=== PATIENT | male | born 1950 | race Caucasian/White ===

== ENCOUNTER 2019-04-12 16:07 | Inpatient (IN) | payer MEDICARE, BC, SELFPAY ==
[2019-04-12] VITALS (9 sets, daily range): BP systolic 101–143; BP diastolic 52–73; PULSE 83–98; RESP 18–36; TEMP 36.6–37.4; O2SAT 94–97; BMI 23.0
--- NOTE | ~2019-04-12 | XR_ITS ---
EXAMINATION: XR chest 2V EXAM DATE: 04/12/2019 17:35 INDICATION: Shortness of breath, pneumonia, left-sided chest pain. TECHNIQUE: Frontal and lateral projections of the chest obtained and reviewed. Comparison is made to prior examination from 04/11/2019. FINDINGS: There is worsening left basilar airspace disease with more confluent today, probably combi nation of pneumonia and atelectasis. There is small left pleural effusion. Right lung is clear. Cardi omediastinal silhouette is normal. There is no pneumothorax suspected. There are mild bony degenerati ve changes. IMPRESSION: Progressing left basilar multisegmental atelectasis and probably pneumonia. Small pleural effusion. Reviewed, dictated and finalized at location A. IAL AGENT IN CHARGE IMPRESSION: Progressing left basilar multisegmental atelectasis and probably pn eumonia. Small pleural effusion.
--- NOTE | ~2019-04-12 | CT_ITS ---
EXAMINATION:CT chest w con DATE: 04/14/2019 07:59 INDICATION: Left parapneumonic effusion. TECHNIQUE: Computed tomography (CT) of the chest was performed with 75 mL Omnipaque 350 intravenous c ontrast. Automated exposure control and iterative reconstruction technique were employed. The dose-le ngth product (DLP) was 284.24 mGy-cm. COMPARISON: Chest CT 04/12/2019 FINDINGS: There is a large loculated left pleural effusion. There are airspace opacities involving le ft lower lobe and lingula, consistent with atelectasis and pneumonia. There is a trace right pleural effusion. There is mild atelectasis on the right. There are a few nodules in right lung measuring up to 4 mm, likely benign. The heart size is normal. No pericardial effusion. The gallbladder is distend ed, likely secondary to fasting. There is mild thoracic spondylosis. IMPRESSION: 1. Worsened large loculated left pleural effusion. 2. Airspace opacities and volume loss involving left lower lobe and lingula, consistent with atelecta sis and pneumonia. Reviewed, dictated and finalized at location A. NE MAINTENANCE MECHANIC IMPRESSION: 1. Worsened large loculated left pleural effusion. 2. Airspace opacities and volume loss involving left lower lobe and lingula, co nsistent with atelectasis and pneumonia.
--- NOTE | ~2019-04-12 | CT_ITS ---
EXAMINATION: CTA chest PE protocol EXAM DATE: 04/12/2019 18:36 INDICATION: Shortness of breath, left-sided pleuritic chest pain worsening. TECHNIQUE: Spiral CTA of the chest (pulmonary arteries) was performed with 100 cc Omnipaque 350 intr avenous contrast injection. Images were acquired during the pulmonary arterial phase. Coronal maxi mum intensity projection 3D-reconstructions were created by the technologist on dedicated workstation . Axial, coronal and sagittal reformatted images were reviewed. The dose-length product (DLP) for t his examination was 405.91 mGy-cm. The exposure was tailored according to patient size (auto mA exp osure control), and iterative reconstruction (ASIR) was used as additional dose reduction technique. Comparison is made to prior examination from earlier same day, a noncontrast study. FINDINGS: There are no pulmonary emboli in the 1st through 3rd order (central and interlobar) pulmon jamaal arteries. Some loss of attenuation in the segmental pulmonary arteries due to respiratory motion , but no intraluminal filling defects suspected. No thoracic aortic dissection. Small to moderate left pleural effusion with adjacent airspace disease partly atelectasis but there is also a region of this which does not have homogeneous enhancement, indicating likelihood of underlying pneumonia or l ess likely mass (a follow-up exam is indicated) Tracheobronchial tree is patent. There is no medias tinal, hilar or axillary lymphadenopathy. There is no pneumothorax. Heart normal in size. No ev idence of coronary arterial calcification. There is 3 mm left mid calyceal stone. Some gastroesophag eal reflux suspected. There is mild to moderate thoracic spondylosis without osteoblastic or osteoly tic lesions identified. IMPRESSION: 1. Limited segmental evaluation, but no pulmonary emboli are suspected. 2. Left lower lobe airspace disease, combination of atelectasis and focal consolidation/pneumonia. F ollow-up CT is indicated when acute symptoms resolve to exclude any underlying chronic process. 3. Small to moderate left pleural effusion. Reviewed, dictated and finalized at location A. INE MANAGER IMPRESSION: 1. Limited segmental evaluation, but no pulmonary emboli are suspected. 2. Left lower lobe airspace disease, combination of atelectasis and focal cons olidation/pneumonia. Follow-up CT is indicated when acute symptoms resolve to e xclude any underlying chronic process. 3. Small to moderate left pleural effusion.
--- NOTE | 2019-04-12 16:28 | ED.SOB ---
HPI - SOB/Dyspnea General Chief Complaint: Shortness of Breath/Dyspnea Stated Complaint: having trouble breathing, dx with pneumonia Time Seen by Provider: 04/12/19 16:23 Source: patient and RN notes reviewed Mode of arrival: ambulatory Limitations: no limitations History of Present Illness HPI Narrative: Pt is a 68 y/o white male who presents to the ED with c/o lt-sided flank pain that has been progressively worsening for the past 3 weeks. Pt notes he was here yesterday and was Dx with pneumonia and sent home on ABx (taken early this morning) and Ibuprofen . He states he returned to the ED today due to the pain worsening and the Ibuprofen not helping. He reports SOB due to the pain. Pt denies emesis or fever. He also denies having any medical issues (no COPD, heart conditions, DM, kidney issues, etc...), allergies, or smoking. Onset (ago): week(s) (3) Context: other (Dx with pneumonia yesterday) Timing: progressively worsening Related Data Home Medications Medication Instructions Recorded Confirmed omeprazole 20 mg PO 3XW 04/12/19 04/12/19 Allergies Allergy/AdvReac Type Severity Reaction Status Date / Time No Known Allergies Allergy Verified 04/12/19 16:58 Review of Systems Review of Systems: All systems reviewed & are unremarkable except as noted in HPI and below Constitutional: Constitutional: Denies fever(s) Respiratory: Respiratory: Reports dyspnea (due to pain) Gastrointestinal: Gastrointestinal: Reports abdominal pain (tenderness) and Denies vomiting Musculoskeletal: Musculoskeletal: Reports other (lt-sided pain) [facility] Past Medical History Medical History (Updated 04/12/19 @ 23:57 by Lorenza Rothman MD) Depression GERD (gastroesophageal reflux disease) Surgical History Surgical History (Updated 04/12/19 @ 22:57 by Miriam Xiao PA-C) Status post appendectomy Status post lumbar spine operation Status post rotator cuff repair Family History Family History Mother Patient's mother is , Onset Age: 67 Sibling Cerebrovascular accident Acute myocardial infarction Social History Social History (Updated 04/12/19 @ 22:58 by Miriam Xiao PA-C) Social History: The patient lives in his own home in [place]. 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 He designates his sister, Natali Corado, as his surrogate decision maker and he wishes to be a full code. He drinks perhaps 6 beers a week. He denies tobacco and drug use. Smoking status: Never smoker Second hand tobacco smoke exposure: Yes Alcohol intake: current Drinks per week: 6 Substance use: former Substance use type: marijuana Gender identity (if verbalized by the patient): Male Spiritual care concerns: No Agree to blood products: Yes Exam Narrative: Exam Narrative: GENERAL: well-nourished, patient splint in pain. HEAD: Normocephalic, atraumatic EYES: PERRLA and EOMI, conjunctiva clear without discharge EARS: TM's clear bilaterally without erythema or dullness NOSE: Nares clear, no rhinorrhea or epistaxis THROAT:Mucous membranes moist, Oropharynx normal without erythema, exudate, peritonsillar swelling or fluctuance NECK: Supple, without lymphadenopathy or mass RESPIRATORY: , Airway patent, Respirations non-labored, Patient is diminished breath sounds to left base. patient taking short shallow breaths due to pain. HEART: Regular rate and rhythm. No murmur heard. Normal peripheral pulses. ABDOMEN: Soft, nontender, nondistended, normal active bowel sounds. No masses. No rebound or guarding, No organomegaly. EXTREMITIES: No edema, normal strength with full range of motion. SKIN: Warm, dry, normal color without rash NEURO: Alert and oriented x3. CN 2-12 grossly intact. No focal deficits. PSYCH: Normal mood and affect. Course Consultations Consultation #1: CELESTE Hyde to Hospitalist Discussed case. Accepted admis
--- NOTE | 2019-04-12 16:39 | ECG_ITS ---
Measurements Intervals [place] Rate: 84 P: 44 DC: 140 QRS: -21 QRSD: 96 T: 34 QT: 358 QTc: 426 Interpretive Statements SINUS RHYTHM INCOMPLETE RIGHT BUNDLE BRANCH BLOCK VOLTAGE CRITERIA FOR LVH MINIMAL Q WAVES- LATERAL LEADS BASELINE ARTIFACT- II, III, AVL, AVF, V3-V6 BORDERLINE ECG Electronically Signed On 04-12-2019 17:42:50 FOREST RANGER TECHNICIAN by Warren Hebert D.O.
[2019-04-12] MEDS: ONDANSETRON INJ 4 MG/2 ML VIAL IV PUSH (16:52)
[2019-04-12] MEDS: HYDROMORPHONE HCL 1 MG/ML INJ IV PUSH (16:52)
[2019-04-12 16:53] LABS: Basophils Absolute Auto 0.1 K/mm3 (0.0-0.1); Basophils Percent Auto 0.5 % (0.2-1.2); Eosinophils Absolute Auto 0.3 K/mm3 (0-0.3); Eosinophils Percent Auto 2.3 % (0-4.4); Hematocrit 37.2 % (42.0-52.0); Hemoglobin 11.6 g/dL (14.0-18.0); Immature Granulocyte Absolute 0.06 K/mm3 (0.00-0.031); Immature Granulocyte Percent A 0.4 % (0-0.5); Lymphocytes Absolute Auto 2.02 K/mm3 (0.9-3.2); Lymphocytes Percent Auto 14.9 % (18.3-44.2); Mean Corpuscular HGB Conc 31.2 g/dl (32-36); Mean Corpuscular Hemoglobin 29.4 pg (26-34); Mean Corpuscular Volume 94.4 fl (80-100); Mean Platelet Volume 11.1 fl (7.4-10.4); Monocytes Absolute Auto 1.7 K/mm3 (0.1-0.6); Monocytes Percent Auto 12.5 % (2.6-8.5); Neutrophils Absolute Auto 9.4 K/mm3 (1.3-6.7); Neutrophils Percent Auto 69.4 % (45.5-73.1); Platelet Count Result 263 k/mm3 (150-375); Red Blood Count 3.94 M/mm3 (4.6-6.20); Red Cell Distribution Width 12.8 % (11.5-14.5); White Blood Count 13.6 K/mm3 (4.5-10.0)
[2019-04-12 17:05] LABS: Alanine Aminotransferase 16 U/L (4-50); Albumin Level 4.3 g/dL (3.5-5.1); Alkaline Phosphatase 67 U/L (38-126); Aspartate Amino Transferase 23 U/L (17-59); Blood Urea Nitrogen 20 mg/dL (9-20); Calcium 9.4 mg/dL (8.4-10.2); Carbon Dioxide 27 mmol/L (22-30); Chloride 101 mmol/L (98-107); Estimated CRCL calculation 80 ml/min; Estimated Glomerular Filt Rate > 60; Glucose 118 mg/dL (75-110); Potassium 3.4 mmol/L (3.4-5.0); Sodium 142 mmol/L (137-145)
[2019-04-12 17:05] LABS: Lactic Acid Reflex 1.2 mmol/L (0.7-2.1)
[2019-04-12 17:11] LABS: Alveolar/Arterial O2 Gradient 48.9 mmHg; Base Excess ABG -1.2 mEq/l (+/-2.0); Carboxyhemoglobin 0.9 % THb (0-2.0); Fractional Inspired Oxygen 21 %; HCO3 ABG 22.7 mEq/l (22.0-26.0); Methemoglobin ABG 0.1 %THb (0-1.5); Oxygen Content ABG 14.8 %vol (16.0-22.0); Oxygen Saturation ABG 91.3 % (95.0-100.0); Oxyhemoglobin 90.1 % THb (90.0-100.0); PCO2 ABG 35.2 mmHg (35.0-45.0); PO2 ABG 58.7 mmHg (80.0-100.0); Reduced Hemoglobin 8.9 %THb (0-5.0); Total Hemoglobin 11.7 g/dL (12.0-18.0); pH ABG 7.427 (7.350-7.450)
[2019-04-12 17:12] LABS: Device ROOM AIR; Modified Allen's Test Pass; Site Drawn RIGHT RADIAL
--- NOTE | 2019-04-12 19:05 | PM.IMHP ---
H&P: HPI History of Present Illness Chief complaint: Shortness of breath and left flank pain. Narrative: Bobby Moore is a pleasant 68 year old male with history of kidney stones, GERD, osteoarthritis, and depression who presented to the emergency department earlier this afternoon from home for evaluation of shortness of breath and left flank pain. The Sunday before he had what he presumed to be influenza. Within a week he was feeling better however has had a persistent cough since that time, rarely productive of clear phlegm. Over the last 3 weeks he has developed left flank/lower ribcage pain that seems to be pleuritic in nature. He describes an intermittent sharp and knife-like pain in the same region, worse with deep inspiration, cough, movement, etc. His appetite has been poor and when he does eat it tastes terrible. He has also had intermittent chills and subjective fever. NyQuil does helps him sleep somewhat and ibuprofen is having lesser and lesser effect on the pleuritic pain. He was seen in the emergency department yesterday, 04/11/2019, was diagnosed with pneumonia and discharged on Levaquin. Unfortunately, he continues to feel worse and came back today. He has not had a fever in the last couple of days. He continues to have some chills. No sinus congestion, rhinorrhea, otalgia, or odynophagia. He denies exertional chest pain. No significant orthopnea. He denies lower extremity edema, calf pain, and history of venous thromboembolism. No dysphagia or concerns for aspiration. No history of multidrug resistant organisms. Review of Systems Review of Systems: Narrative: Twelve systems were reviewed with pertinent positives and negatives as per HPI. He has lost about 15 pound since before due to poor appetite. No overt orthopnea but he does feel a bit better if he is propped up. He does suffer from GERD and will take [id number] Prilosec 3 or 4 times per week. No melena or hematochezia. He has not had epigastric or abdominal pain. He admits to suffering from depression, and has been off antidepressants for about 6 months as his primary care provider apparently left the region. He admits to being depressed, but seems to have a good support system in his sister and he has no harmful thoughts. He says that sometimes he feels confused, but when asked for specifics he really could not give any. More so, he describes ?feeling like I am in a fog.? No focal weakness or paresthesias. No auditory visual changes. he notes a cervical strain but no significant problems with that at this time. Except as documented, all other systems were reviewed and are negative. [facility] Past Medical History Medical History (Updated 04/12/19 @ 23:02 by Miriam Xiao PA-C) Depression GERD (gastroesophageal reflux disease) Surgical History Surgical History (Updated 04/12/19 @ 22:57 by Miriam Xiao PA-C) Status post appendectomy Status post lumbar spine operation Status post rotator cuff repair Family History Family History Mother Patient's mother is , Onset Age: 67 Sibling Cerebrovascular accident Acute myocardial infarction Social History Social History (Updated 04/12/19 @ 22:58 by Miriam Xiao PA-C) Social History: The patient lives in his own home in [place]. 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 He designates his sister, Natali Corado, as his surrogate decision maker and he wishes to be a full code. He drinks perhaps 6 beers a week. He denies tobacco and drug use. Smoking status: Never smoker Second hand tobacco smoke exposure: Yes Alcohol intake: current Drinks per week: 6 Substance use: former Substance use type: marijuana Gender identity (if verbalized by the patient): Male Spiritual care concerns: No Agree to blood products: Yes Meds Home Medications and Allergies Home Medications
[2019-04-12] MEDS: KETOROLAC 30 MG/ML VIAL (*BKC) IV PUSH (19:36)
[2019-04-12] MEDS: HYDROMORPHONE HCL 1 MG/ML INJ 0.5 MG IV PUSH ×2 (19:36→23:18)
--- NOTE | 2019-04-12 20:48 | ADMGEN ---
This patient, Bobby Moore, was admitted to Medical Room 349-01. Patient/family oriented to hospital policies and general routines including ID bracelet, bed and alarms, visiting hours, pain management, procedures, bathroom and other care routines, personal items, smoking policy, room service/diet, and visiting hours. Valuables list has been completed. Information on how to activate the Rapid Response Team has been discussed. Patient/Family are encouraged to report perceived risks to care and to ask questions if they do not understand what they are told or what they should do.
[2019-04-12] MEDS: LACTATED RINGERS 1,000 ML 125 ML IV CONT (20:51)
[2019-04-13] VITALS (22 sets, daily range): BP systolic 110–121; BP diastolic 51–63; PULSE 73–115; RESP 14–20; TEMP 36.6–39.4; O2SAT 95–97
[2019-04-13] MEDS: IPRATROPIUM BR 0.02% INH SOLN 0.5 MG/2.5 ML VIAL INHALATION ×4 (02:13→21:39)
[2019-04-13] MEDS: ALBUTEROL SULFATE NEB 2.5 MG/0.5 ML INH 5 MG INHALATION ×4 (02:13→21:39)
[2019-04-13] MEDS: HYDROMORPHONE HCL 1 MG/ML INJ 0.5 MG IV PUSH ×4 (03:26→22:52)
[2019-04-13] MEDS: LACTATED RINGERS 1,000 ML 125 ML IV CONT ×2 (05:16→13:38)
[2019-04-13 06:07] LABS: Basophils Absolute Auto 0.1 K/mm3 (0.0-0.1); Basophils Percent Auto 0.3 % (0.2-1.2); Eosinophils Absolute Auto 0.1 K/mm3 (0-0.3); Eosinophils Percent Auto 0.4 % (0-4.4); Hematocrit 33.6 % (42.0-52.0); Hemoglobin 10.4 g/dL (14.0-18.0); Immature Granulocyte Absolute 0.07 K/mm3 (0.00-0.031); Immature Granulocyte Percent A 0.4 % (0-0.5); Lymphocytes Absolute Auto 0.91 K/mm3 (0.9-3.2); Lymphocytes Percent Auto 5.5 % (18.3-44.2); Mean Corpuscular Hemoglobin 28.9 pg (26-34); Mean Corpuscular Volume 93.3 fl (80-100); Mean Platelet Volume 10.5 fl (7.4-10.4); Monocytes Absolute Auto 1.5 K/mm3 (0.1-0.6); Monocytes Percent Auto 8.8 % (2.6-8.5); Neutrophils Percent Auto 84.6 % (45.5-73.1); Platelet Count Result 228 k/mm3 (150-375); White Blood Count 16.5 K/mm3 (4.5-10.0)
[2019-04-13 06:36] LABS: Blood Urea Nitrogen 20 mg/dL (9-20); Calcium 8.7 mg/dL (8.4-10.2); Carbon Dioxide 24 mmol/L (22-30); Chloride 100 mmol/L (98-107); Estimated CRCL calculation 72 ml/min; Estimated Glomerular Filt Rate > 60; Glucose 84 mg/dL (75-110); Potassium 3.8 mmol/L (3.4-5.0); Sodium 137 mmol/L (137-145)
--- NOTE | 2019-04-13 14:47 | PM.IMPN ---
Progress Note: A&P Assessment and Plan (1) Community acquired pneumonia: Qualifiers: Laterality: left Lung location: lower lobe of lung Qualified Code(s): J18.9 - Pneumonia, unspecified organism Code(s): J18.9 - Pneumonia, unspecified organism Status: Acute Assessment and Plan: ------likely secondary to influenza prior. WBC did increase today 16.5. Continue azithromycin and ceftriaxone. Consider vancomycin if no improvement, but at this time he is clinically stable without evidence of necrotizing pneumonia. Will wait for pulmonology's recommendations. Consider thoracentesis because of the patient's significant pain. Sputum culture and urine antigens have been ordered. (2) Pleural effusion on left: Code(s): J90 - Pleural effusion, not elsewhere classified Status: Acute Assessment and Plan: ------Concerns for parapneumonic effusion given pneumonia. See above (3) Depression: Code(s): F32.9 - Major depressive disorder, single episode, unspecified Status: Acute Assessment and Plan: ------Patient does report feeling depressed, but has a good support system. Previous provider discussed establishing a new primary care provider so he can resume antidepressants. He denies harmful thoughts. Time Spent With Patient Time with patient: 25 - 35 minutes Subjective Date/time seen: 04/13/19 14:47 Interval history: Pt is a 68-year-old male here for left pleuritic pain. Patient states the pain is persistent and he is very uncomfortable 10/10 pain. He does not have any shortness of breath or dyspnea on exertion, just significant pain with cough and deep breaths on left side. He says the pain medications barely touches it. Patient denies nausea, vomiting, diarrhea or constipation. He thinks it may have improved slightly. Review of Systems Review of Systems: All systems reviewed & are unremarkable except as noted in HPI and below Exam Narrative: Exam Narrative: General: Well developed well nourished patient resting comfortably in bed in NAD HEENT: normocephalic Neck: supple Neuro: Alert and oriented x4 CV:RRR. significant pain to palpation to the left chest. Resp: Slightly decreased breath sounds at the bases due to the patient not taking deep breaths. Abd: Soft, non distended. No pain to palpation. Positive bowel sounds Extremities: No swelling, erythema, or pain to palpation. Objective Data Vital Signs Vital Signs: Vital Signs - 24 hr 04/12/19 16:15 04/12/19 16:22 04/12/19 16:28 Temperature 97.8 F Pulse Rate 84 83 83 Respiratory Rate 19 36 H Blood Pressure 143/56 H Pulse Oximetry 94 94 04/12/19 16:32 04/12/19 16:55 04/12/19 18:00 Temperature 98.0 F Pulse Rate 89 91 Respiratory Rate 32 H 23 H Blood Pressure 101/73 137/67 Pulse Oximetry 94 95 97 04/12/19 19:00 04/12/19 20:20 04/12/19 20:26 Temperature 99.3 F 98.7 F Pulse Rate 98 95 98 Respiratory Rate 25 H 20 18 Blood Pressure 112/64 107/52 L 107/68 Pulse Oximetry 95 96 95 04/13/19 00:00 04/13/19 02:14 04/13/19 02:23 Temperature Pulse Rate 88 73 77 Respiratory Rate 16 18 Blood Pressure Pulse Oximetry 04/13/19 04:00 04/13/19 06:00 04/13/19 08:00 Temperature 98.2 F Pulse Rate 90 87 82 Respiratory Rate 20 Blood Pressure 120/63 Pulse Oximetry 95 04/13/19 08:14 04/13/19 08:23 04/13/19 08:35 Temperature Pulse Rate 85 91 82 Respiratory Rate 18 18 18 Blood Pressure Pulse Oximetry 95 04/13/19 12:00 Temperature Pulse Rate 85 Respiratory Rate Blood Pressure Pulse Oximetry Intake/Output Intake/Output: Intake & Output 04/10/19 04/11/19 04/12/19 04/13/19 23:59 23:59 23:59 23:59 Intake Total 300 2780 Output Total 600 Balance 300 2180 Meds/Results Medications: Active Medications Generic Name Dose Route Start Last Admin Trade Name Freq PRN Reason Stop Dose Admin Albuterol 5 mg 04/13
--- NOTE | 2019-04-13 19:47 | PM.CNPUL ---
Assessment and Plan Assessment and plan (1) Community acquired pneumonia: Qualifiers: Laterality: left Lung location: lower lobe of lung Qualified Code(s): J18.9 - Pneumonia, unspecified organism Code(s): J18.9 - Pneumonia, unspecified organism Status: Acute Assessment and Plan: Agree with Ceftriaxone and Azithromycin or Levaquin 750 mg for 8-10 days (2) Parapneumonic effusion: Code(s): J18.9 - Pneumonia, unspecified organism; J91.8 - Pleural effusion in other conditions classified elsewhere Status: Acute Assessment and Plan: - I will order repeat CT chest with IV contrast tomorrow. If Pleural fluid has not decreased in sized I would recommend a left small bore chest tube be inserted to prevent empyema from developing - Toradol 30 mg IV Q6h scheduled for 48 hours - agree with hydromorphone PRN for moderate to severe pain - encourage incentive spirometer Q2h while awake and mobilzation. History of Present Illness History of Present Illness Consult date: 04/13/19 Chief complaint: Shortness of breath and left flank pain. Narrative: 68 y/o relatively health male who developed flu like symptoms since late february 2019, originally with URI like symptoms but later developed cough and left pleuritic chest pain along with subjective fevers and some chills. He was originally prescribed outpatient levofloxacin but could not tolerate the the left pleuritic chest pain and was admitted to hospital yesterday. He was started on Ceftriaxone and Azithromycin along with pain control. A CT chest showed LLL pneumonia and mild to moderate sized left pleuritic effusion that appeared to be free flowing. Review of Systems Review of Systems: All systems reviewed & are unremarkable except as noted in HPI and below PMFSH Past Medical History Medical History (Updated 04/13/19 @ 20:10 by Timbo Young MD) Depression GERD (gastroesophageal reflux disease) Surgical History Surgical History (Updated 04/12/19 @ 22:57 by Miriam Xiao PA-C) Status post appendectomy Status post lumbar spine operation Status post rotator cuff repair Family History Family History Mother Patient's mother is , Onset Age: 67 Sibling Cerebrovascular accident Acute myocardial infarction Social History Social History (Updated 04/12/19 @ 22:58 by Miriam Xiao PA-C) Social History: The patient lives in his own home in [place]. 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 He designates his sister, Natali Corado, as his surrogate decision maker and he wishes to be a full code. He drinks perhaps 6 beers a week. He denies tobacco and drug use. Smoking status: Never smoker Second hand tobacco smoke exposure: Yes Alcohol intake: current Drinks per week: 6 Substance use: former Substance use type: marijuana Gender identity (if verbalized by the patient): Male Spiritual care concerns: No Agree to blood products: Yes Meds Home Medications and Allergies Home Medications Medication Instructions Recorded Confirmed Type cyclobenzaprine 10 mg PO TID PRN #10 tablet 04/12/19 04/12/19 Rx ibuprofen [IBU] 600 mg PO Q6H PRN #20 tablet 04/12/19 04/12/19 Rx levofloxacin [Levaquin] 750 mg PO DAILY #10 tablet 04/12/19 04/12/19 Rx omeprazole 20 mg PO 3XW 04/12/19 04/12/19 History Allergies Allergy/AdvReac Type Severity Reaction Status Date / Time No Known Allergies Allergy Verified 04/12/19 16:58 Vital Signs Vital Signs - 24 hr 04/12/19 20:20 04/12/19 20:26 04/13/19 00:00 Temperature 37.1 C Pulse Rate 95 98 88 Respiratory Rate 20 18 Blood Pressure 107/52 L 107/68 Pulse Oximetry 96 95 04/13/19 02:14 04/13/19 02:23 04/13/19 04:00 Temperature Pulse Rate 73 77 90 Respiratory Rate 16 18 Blood Pressure Pulse Oximetry 04/13/19 06:00 04/13/19 08:00 04/13/19 08:14 Temperature 36.8 C
[2019-04-13] MEDS: KETOROLAC 30 MG/ML VIAL (*BKC) IV PUSH (20:15)
[2019-04-13] MEDS: FAMOTIDINE 20 MG TABLET PO (20:18)
[2019-04-14] VITALS (13 sets, daily range): BP systolic 136–152; BP diastolic 61–65; PULSE 88–116; RESP 18–24; TEMP 37–37.5; O2SAT 91–96; BMI 24.3
[2019-04-14] MEDS: KETOROLAC 30 MG/ML VIAL (*BKC) IV PUSH ×3 (00:49→13:44)
[2019-04-14] MEDS: LACTATED RINGERS 1,000 ML 80 ML IV CONT ×2 (00:51→13:47)
[2019-04-14] MEDS: IPRATROPIUM BR 0.02% INH SOLN 0.5 MG/2.5 ML VIAL INHALATION ×3 (04:13→14:46)
[2019-04-14] MEDS: ALBUTEROL SULFATE NEB 2.5 MG/0.5 ML INH 5 MG INHALATION ×3 (04:13→14:46)
[2019-04-14] MEDS: HYDROMORPHONE HCL 1 MG/ML INJ 0.5 MG IV PUSH ×3 (04:24→13:46)
[2019-04-14 05:52] LABS: INR 1.2; Prothrombin Time 14.9 Seconds (11.1-14.7)
[2019-04-14 05:54] LABS: Partial Thromboplastin Time 44.7 SECONDS (22.3-36.8)
[2019-04-14 05:55] LABS: Alanine Aminotransferase 12 U/L (4-50); Albumin Level 3.2 g/dL (3.5-5.1); Alkaline Phosphatase 58 U/L (38-126); Aspartate Amino Transferase 21 U/L (17-59); Bilirubin,Total 0.8 mg/dL (0.2-1.3); Blood Urea Nitrogen 18 mg/dL (9-20); Calcium 8.5 mg/dL (8.4-10.2); Carbon Dioxide 25 mmol/L (22-30); Chloride 100 mmol/L (98-107); Estimated CRCL calculation 89 ml/min; Estimated Glomerular Filt Rate > 60; Glucose 118 mg/dL (75-110); Potassium 3.6 mmol/L (3.4-5.0); Sodium 135 mmol/L (137-145)
[2019-04-14 07:30] LABS: Basophils Percent Auto 0.1 % (0.2-1.2); Eosinophils Absolute Auto 0.2 K/mm3 (0-0.3); Eosinophils Percent Auto 1.2 % (0-4.4); Hematocrit 31.2 % (42.0-52.0); Hemoglobin 9.9 g/dL (14.0-18.0); Immature Granulocyte Absolute 0.08 K/mm3 (0.00-0.031); Immature Granulocyte Percent A 0.6 % (0-0.5); Lymphocytes Percent Auto 3.7 % (18.3-44.2); Mean Corpuscular HGB Conc 31.7 g/dl (32-36); Mean Corpuscular Hemoglobin 29.6 pg (26-34); Mean Corpuscular Volume 93.1 fl (80-100); Mean Platelet Volume 10.5 fl (7.4-10.4); Monocytes Absolute Auto 1.1 K/mm3 (0.1-0.6); Monocytes Percent Auto 8.5 % (2.6-8.5); Neutrophils Absolute Auto 11.6 K/mm3 (1.3-6.7); Neutrophils Percent Auto 85.9 % (45.5-73.1); Platelet Count Result 221 k/mm3 (150-375); Red Blood Count 3.35 M/mm3 (4.6-6.20); Red Cell Distribution Width 13.2 % (11.5-14.5); White Blood Count 13.5 K/mm3 (4.5-10.0)
[2019-04-14] MEDS: CYCLOBENZAPRINE HCL 10 MG TABLET PO (07:37)
[2019-04-14] MEDS: FAMOTIDINE 20 MG TABLET PO (09:43)
--- NOTE | 2019-04-14 12:23 | PCNSR ---
On 04/14/19, the student, Ting Estrella, provided care and completed [facility] documentation on this patient. I have reviewed the student's documentation and agree with the findings.
--- NOTE | 2019-04-14 14:00 | PM.PNPUL ---
Progress Note: A&P Assessment and Plan (1) Parapneumonic effusion: Code(s): J18.9 - Pneumonia, unspecified organism; J91.8 - Pleural effusion in other conditions classified elsewhere Status: Acute (2) Community acquired pneumonia: Qualifiers: Laterality: left Lung location: lower lobe of lung Qualified Code(s): J18.9 - Pneumonia, unspecified organism Code(s): J18.9 - Pneumonia, unspecified organism Status: Acute Subjective Date/time seen: 04/14/19 14:00 This 68 yo man is seen in follow up for community acquired pneumonia with a parapneumonic effusion. Review of Systems Review of Systems: All systems reviewed & are unremarkable except as noted in HPI and below Exam Const: General: no acute distress and uncomfortable (guarding left chest, afraid to cough or take a deep breath from pain) Neck: Neck: supple and no JVD Resp: Auscultation: no crackles, no rales, no rhonchi and diminished lung sounds (left posterior) Cardio: Rate: regular rate Rhythm: regular rhythm Heart sounds: no gallops and no murmurs GI: GI Palp: Yes Soft to palpation Auscultation: normal bowel sounds Skin: General skin exam: normal color Extrem: General: normal to inspection, no edema and no pedal edema Psych: Mental Status: mental status grossly normal Affect: normal affect Objective Data Vital Signs Vital Signs: Vital Signs - 24 hr 04/13/19 15:48 04/13/19 15:57 04/13/19 16:00 Temperature Pulse Rate 88 106 H 109 H Respiratory Rate 16 18 Blood Pressure Pulse Oximetry 04/13/19 17:11 04/13/19 17:15 04/13/19 17:40 Temperature 39.4 C H 37.1 C 38.3 C H Pulse Rate Respiratory Rate Blood Pressure Pulse Oximetry 04/13/19 18:45 04/13/19 20:00 04/13/19 21:39 Temperature 37.1 C Pulse Rate 87 90 Respiratory Rate 18 Blood Pressure Pulse Oximetry 04/13/19 21:52 04/13/19 22:14 04/14/19 00:00 Temperature 36.6 C Pulse Rate 94 100 88 Respiratory Rate 18 16 Blood Pressure 121/51 L Pulse Oximetry 95 04/14/19 04:00 04/14/19 04:13 04/14/19 04:20 Temperature Pulse Rate 90 102 H 97 Respiratory Rate 20 20 Blood Pressure Pulse Oximetry 04/14/19 05:35 04/14/19 08:00 04/14/19 08:18 Temperature 37.0 C Pulse Rate 96 101 H 98 Respiratory Rate 24 H 20 Blood Pressure 136/61 Pulse Oximetry 96 04/14/19 08:31 04/14/19 12:00 Temperature Pulse Rate 110 H 97 Respiratory Rate 20 Blood Pressure Pulse Oximetry Intake/Output Intake/Output: Intake & Output 04/11/19 04/12/19 04/13/19 04/14/19 23:59 23:59 23:59 23:59 Intake Total 300 5140 1000 Output Total 2600 300 Balance 300 2540 700 Meds/Results Medications: Active Medications Generic Name Dose Route Start Last Admin Trade Name Freq PRN Reason Stop Dose Admin Albuterol 5 mg 04/13/19 02:00 04/14/19 08:17 Albuterol Sulf Neb 2.5mg/0.5ml INHALATION 5 mg Q6HRT [facility] Administration Cyclobenzaprine HCl 10 mg 04/12/19 23:16 04/14/19 07:37 Flexeril PO 10 mg TID PRN Administration muscle spasm Famotidine 20 mg 04/13/19 21:00 04/14/19 09:43 Pepcid PO 20 mg Q12HR [facility] Administration Guaifenesin 600 mg 04/12/19 23:20 04/14/19 09:43 Mucinex 12 Hr Tab PO 600 mg Q12HR [facility] Administration Hydromorphone HCl 0.5 mg 04/12/19 19:11 04/14/19 13:46 Dilaudid Inj IV PUSH 0.5 mg Q4H PRN Administration Pain Rated 7-10 Lactated Ringer's 1,000 mls @ 80 mls/hr 04/12/19 19:15 04/14/19 13:47 Lr - Lactated Ringers Iv IV CONT 80 mls/hr .[id number] [facility] Administration Ceftriaxone Sodium/Dextrose 1 gm in 50 mls @ 100 mls/hr 04/13/19 17:00 04/13/19 17:10 Rocephin 1 Gm/D5w 50 Ml IVPB Infused Q24H [facility] Infusion Azithromycin 500 mg in 250 mls @ 250 mls/hr 04/13/19 19:00 04/13/19 19:41 Zithromax IVPB Infused Q24H [facility] Infusion Ipratropium Dwight 0.5 mg 04/13/19 02:00 04/14/19 08:17 Atr
--- NOTE | 2019-04-14 15:26 | PM.TDS ---
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 [facility] DS: Diagnosis Admitting Diagnosis Admitting Diagnosis: Pneumonia, unspecified organism Discharge Diagnosis (1) Community acquired pneumonia: Qualifiers: Laterality: left Lung location: lower lobe of lung Qualified Code(s): J18.9 - Pneumonia, unspecified organism Code(s): J18.9 - Pneumonia, unspecified organism Status: Acute Assessment and Plan: ------likely secondary to influenza prior. WBC 13.[address] shows worsening pleural effusion and pt in considerable pain. Spoke with Dr. Figueroa and sx who recommend transfer to tertiary care center. (2) Pleural effusion on left: Code(s): J90 - Pleural effusion, not elsewhere classified Status: Acute Assessment and Plan: ------Concerns for parapneumonic effusion given pneumonia. See above (3) Depression: Code(s): F32.9 - Major depressive disorder, single episode, unspecified Status: Acute Assessment and Plan: ------Patient does report feeling depressed, but has a good support system. Previous provider discussed establishing a new primary care provider so he can resume antidepressants. He denies harmful thoughts. Transfer Discharge Sum: Med Medications Active and Home Medications: Home Medications cyclobenzaprine 10 mg PO TID PRN #10 tablet 04/12/19 [Rx Confirmed 04/12/19] ibuprofen [IBU] 600 mg PO Q6H PRN #20 tablet 04/12/19 [Rx Confirmed 04/12/19] levofloxacin [Levaquin] 750 mg PO DAILY #10 tablet 04/12/19 [Rx Confirmed 04/12/19] omeprazole 20 mg PO 3XW 04/12/19 [History Confirmed 04/12/19] Active Medications Albuterol (Albuterol Sulf Neb 2.5mg/0.5ml) 5 mg INHALATION Q6HRT [facility] Last Admin: 04/14/19 14:46 Dose: 5 mg Documented by: Cyclobenzaprine HCl (Flexeril) 10 mg PO TID PRN PRN Reason: muscle spasm Last Admin: 04/14/19 07:37 Dose: 10 mg Documented by: Famotidine (Pepcid) 20 mg PO Q12HR [facility] Last Admin: 04/14/19 09:43 Dose: 20 mg Documented by: Guaifenesin (Mucinex 12 Hr Tab) 600 mg PO Q12HR [facility] Last Admin: 04/14/19 09:43 Dose: 600 mg Documented by: Hydromorphone HCl (Dilaudid Inj) 0.5 mg IV PUSH Q4H PRN PRN Reason: Pain Rated 7-10 Last Admin: 04/14/19 13:46 Dose: 0.5 mg Documented by: Lactated Ringer's (Lr - Lactated Ringers Iv) 1,000 mls @ 80 mls/hr IV CONT .[id number] [facility] Last Admin: 04/14/19 13:47 Dose: 80 mls/hr Documented by: Ceftriaxone Sodium/Dextrose (Rocephin 1 Gm/D5w 50 Ml) 1 gm in 50 mls @ 100 mls/hr IVPB Q24H [facility] Last Infusion: 04/13/19 17:10 Dose: Infused Documented by: Azithromycin (Zithromax) 500 mg in 250 mls @ 250 mls/hr IVPB Q24H [facility] Last Infusion: 04/13/19 19:41 Dose: Infused Documented by: Ipratropium Phyllis (Atrovent Neb) 0.5 mg INHALATION Q6HRT [facility] Last Admin: 04/14/19 14:46 Dose: 0.5 mg Documented by: Ketorolac Tromethamine (Toradol Inj) 30 mg IV PUSH Q6HR [facility] Last Admin: 04/14/19 13:44 Dose: 30 mg Documented by: Promethazine HCl (Phenergan Inj) 12.5 mg IV PUSH Q6H PRN PRN Reason: Nausea Transfer Discharge Sum: Hosp Hospital Course Hospital course: Bobby Moore is a 68 year old male who presented emergency room for shortness flank pain, of breath and cough. Temperature 98.7?, pulse 98, respiratory rate 18, blood pres
[2019-04-15 12:18] LABS: Legionella pneumophila Ag Ur Not Detected (Not Detected)
[2019-04-15 16:22] LABS: Pneumococcal Antigen Urine Not Detected (Not Detected)
== END 2019-04-14 17:10 | disposition critical access hospital (66) | DRG 194 ==
LOC: ANHED 19:02 → ANH3MED 19:41
PROVIDERS: Physician Assistant; Admitting Provider Internal Medicine; Emergency Provider General Practice; Visit Provider Internal Medicine
DX: J18.9 Pneumonia, unspecified organism (principal); J91.8 Pleural effusion in other conditions classified elsewhere; Z87.442 Personal history of urinary calculi; K21.9 Gastro-esophageal reflux disease without esophagitis; M19.90 Unspecified osteoarthritis, unspecified site; F32.9 Major depressive disorder, single episode, unspecified
CPT/HCPCS: 36415; 36600; 71046; 71250; 71260; 71275; 74177; 80048; 80053; 81001; 82375; 82805; 83050; 83605; 83690; 85025; 85610; 85730; 87040; 87070; 87205; 87449; 87804; 87899; 93005; 94640; 94667; 94668; 96361; 96365; 96367; 96374; 96375; 96376; 99284; 99285; A9270; G0378; J0131; J0456; J0696; J1170; J1885; J2405; J7120; Q9967

== ENCOUNTER 2019-05-10 12:47 | Outpatient (CLI) | payer MEDICARE, BC, SELFPAY ==
--- NOTE | ~2019-05-10 | XR_ITS ---
XR chest 2V 05/10/2019 13:04 Indication: Pneumonia. Procedure: 2 view chest Comparison: 04/12/2019 Findings: There is improving left lower lobe pneumonia. Small left pleural effusion. Heart size efra l. Right lung clear. No pneumothorax. No acute osseous abnormality. Impression: 1: Improving left lower lobe pneumonia with small residual left effusion. Reviewed, dictated and finalized at location A. CH/LANGUAGE THERAPIST Impression: 1: Improving left lower lobe pneumonia with small residual left effusion.
[2019-05-10 14:05] LABS: Basophils Absolute Auto 0.1 K/mm3 (0.0-0.1); Basophils Percent Auto 1.2 % (0.2-1.2); Eosinophils Absolute Auto 0.5 K/mm3 (0-0.3); Eosinophils Percent Auto 7.3 % (0-4.4); Hemoglobin 10.9 g/dL (14.0-18.0); Immature Granulocyte Absolute 0.02 K/mm3 (0.00-0.031); Immature Granulocyte Percent A 0.3 % (0-0.5); Lymphocytes Absolute Auto 1.57 K/mm3 (0.9-3.2); Lymphocytes Percent Auto 23.7 % (18.3-44.2); Mean Corpuscular HGB Conc 31.1 g/dl (32-36); Mean Corpuscular Hemoglobin 28.2 pg (26-34); Mean Corpuscular Volume 90.4 fl (80-100); Mean Platelet Volume 11.2 fl (7.4-10.4); Monocytes Absolute Auto 0.7 K/mm3 (0.1-0.6); Monocytes Percent Auto 9.8 % (2.6-8.5); Neutrophils Absolute Auto 3.8 K/mm3 (1.3-6.7); Neutrophils Percent Auto 57.7 % (45.5-73.1); Platelet Count Result 191 k/mm3 (150-375); Red Blood Count 3.87 M/mm3 (4.6-6.20); Red Cell Distribution Width 13.6 % (11.5-14.5); White Blood Count 6.6 K/mm3 (4.5-10.0)
== END 2019-05-10 12:48 | disposition home or self-care (01) ==
PROVIDERS: PCP Family Medicine; Visit Provider Nurse Practitioner
DX: D72.829 Elevated white blood cell count, unspecified (principal); J18.9 Pneumonia, unspecified organism
CPT/HCPCS: 36415; 71046; 85025

== ENCOUNTER 2019-06-22 12:58 | Outpatient (CLI) | payer MEDICARE, SELFPAY ==
--- NOTE | ~2019-06-22 | XR_ITS ---
XR chest 2V DATE: 06/22/2019 13:14 INDICATION: Pleural effusion TECHNIQUE: PA and lateral views COMPARISON: 05/10/2019 PA and lateral chest 04/11/2021 view chest FINDINGS: Normal heart size. No hilar or mediastinal enlargement. There is aortic arch calcification. There is mild blunting of the left costophrenic angle. There is minimal diminished infiltrate or atel ectasis at the left lung base over serial examinations since 04/07/2019. Degenerative spurring of the thoracic spine. IMPRESSION: Minimal residual infiltrate or atelectasis at left lung base and minimal blunting of left costophrenic angle Reviewed, dictated and finalized at location A. IMPRESSION: Minimal residual infiltrate or atelectasis at left lung base and mi nimal blunting of left costophrenic angle
== END 2019-06-22 12:59 | disposition home or self-care (01) ==
LOC: ANHIMG 13:00
PROVIDERS: PCP Family Medicine; Visit Provider Nurse Practitioner
DX: J90 Pleural effusion, not elsewhere classified (principal); R91.8 Other nonspecific abnormal finding of lung field
CPT/HCPCS: 71046

== ENCOUNTER 2019-12-17 10:22 | Outpatient (CLI) | payer MEDICARE, SELFPAY ==
--- NOTE | ~2019-12-17 | XR_ITS ---
XR chest 2V DATE: 12/17/2019 10:47 INDICATION: Preprocedural cardiovascular examination TECHNIQUE: PA and lateral views COMPARISON: 06/22/2019 PA and lateral chest FINDINGS: Mild elevation of the left leaf of the diaphragm and chronic left costophrenic angle blunti ng, minimal probable discoid scarring in the lateral left lung base, unchanged since 06/22/2019. No pulmonary infiltrate or consolidation, pleural effusion or pulmonary vascular congestion or pneumo thorax is detected. Normal heart size. Aortic arch calcification. Degenerative spurring of the thoracic spine. IMPRESSION: No active disease or significant change since 06/22/2019 Reviewed, dictated and finalized at location B.
--- NOTE | 2019-12-17 11:05 | ECG_ITS ---
Measurements Intervals [place] Rate: 65 P: 35 WI: 161 QRS: -14 QRSD: 97 T: 13 QT: 405 QTc: 421 Interpretive Statements SINUS RHYTHM INCOMPLETE RIGHT BUNDLE BRANCH BLOCK VOLTAGE CRITERIA FOR LVH MINIMAL Q WAVES- HIGH LATERAL LEADS BORDERLINE ECG Electronically Signed On 12-17-2019 12:25:28 CDT by Warren Hebert D.O.
== END 2019-12-17 10:23 | disposition home or self-care (01) ==
LOC: ANHIMG 10:26
PROVIDERS: PCP Nurse Practitioner; Visit Provider Nurse Practitioner
DX: Z01.810 Encounter for preprocedural cardiovascular examination (principal); I45.19 Other right bundle-branch block
CPT/HCPCS: 71046; 93005

== ENCOUNTER → 2020-04-20 08:15 | Outpatient (REF) | payer MEDICARE, SELFPAY | LOC: ANHLAB 08:15 | PROVIDERS: PCP Family Medicine; Visit Provider Nurse Practitioner | DX: L72.8 Other follicular cysts of the skin and subcutaneous tissue (principal) | CPT/HCPCS: 88304 ==

== ENCOUNTER 2021-06-29 04:25 | Emergency (ER) | payer MEDICARE, SELFPAY ==
--- NOTE | ~2021-06-29 | XR_ITS ---
EXAMINATION: XR foot RT 2V INDICATION: Right first toe pain TECHNIQUE: Two views of the right foot are obtained. COMPARISON: None available FINDINGS: There is no fracture, dislocation, or subluxation. There is moderate osteoarthritis at the first metatarsophalangeal joint. Advanced osteoarthritis is noted in the second through fifth distal interphalangeal joints. There is moderate osteoarthritis at the second through fifth proximal interph alangeal joints. Calcified atherosclerosis is noted. There is a posterior calcaneal enthesophyte. IMPRESSION: 1. Polyarticular osteoarthritis. Reviewed, dictated and finalized at location A.
[2021-06-29 04:29] VITALS: BP 139/80; PULSE 78; RESP 16; TEMP 36.7; O2SAT 98
[2021-06-29 04:31] VITALS: BP 139/80; PULSE 78; RESP 16; TEMP 36.7; O2SAT 98
--- NOTE | 2021-06-29 04:34 | ED.LOWEXIN ---
HPI - Extremity Injury (Lower) General Chief Complaint: Extremity Injury, Lower Stated Complaint: rt foot pain Time Seen by Provider: 06/29/21 04:30 Source: patient Mode of arrival: ambulatory Limitations: no limitations History of Present Illness HPI Narrative: 70-year-old male presents emergency room secondary pain to the right foot. He states he inadvertently kicked the bedpost last night, about 24 hours ago. States he been having pain ever since. He tried to get comfortable tonight and rest but he could not subsequently came to the emergency room. The pain is to the right great toe at the base of the toe as well as towards the end of the fifth metatarsal. Hurts when he tries to walk on it. Is not taken anything for pain prior to come to emergency room. Related Data Home Medications Medication Instructions Recorded Confirmed omeprazole magnesium 20 mg 20 mg PO DAILY 12/17/19 06/15/21 tablet,delayed release Allergies Allergy/AdvReac Type Severity Reaction Status Date / Time No Known Allergies Allergy Verified 06/29/21 04:31 Review of Systems Review of Systems: CONSTITUTIONAL: Denies fever, chills, or sweats. CARDIOVASCULAR: Denies chest pain, palpitations, or edema. RESPIRATORY: Denies cough or dyspnea. GASTROINTESTINAL: Denies abdominal pain, nausea, vomiting, or diarrhea. GENITOURINARY: Denies dysuria or hematuria. SKIN: Denies rash or itching. MUSCULOSKELETAL: Pain to the right foot around the great toe. No ankle pain. No history of any chronic joint issues. NEUROLOGIC: Denies headache, numbness, or weakness. PSYCHIATRIC: Denies anxiety or depression. All systems reviewed & are unremarkable except as noted in HPI and below PMFSH Past Medical History Medical History Community acquired pneumonia Depression GERD (gastroesophageal reflux disease) Parapneumonic effusion Subcutaneous mass Surgical History Surgical History History of hip replacement Status post appendectomy Status post lumbar spine operation Status post rotator cuff repair Family History Family History Mother Patient's mother is , Onset Age: 67 Sibling Cerebrovascular accident Acute myocardial infarction Diverticulitis Social History Social History Social History: The patient lives in his own home in [place]. 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 He designates his sister, Natali Corado, as his surrogate decision maker and he wishes to be a full code. He drinks perhaps 6 beers a week. He denies tobacco and drug use. Smoking status: Current some day smoker (cigars ) Tobacco type: cigars Second hand tobacco smoke exposure: Yes Alcohol intake: current Drinks per week: 6 Substance use: former Substance use type: marijuana Gender identity (if verbalized by the patient): Male Spiritual care concerns: No Agree to blood products: Yes Exam Narrative: APPEARANCE: Well appearing, no pain or distress, well-nourished. Head normocephalic and atraumatic. EYES: PERRLA/EOMI, conjunctivae very clear. NECK: Supple. No adenopathy, no masses. RESPIRATORY: Airway patent, respirations nonlabored. Clear to auscultation bilaterally, no rales, rhonchi, wheezing. CARDIOVASCULAR: Regular rate and rhythm without murmurs, rubs, or gallops. ABDOMINAL: Soft, nontender, nondistended, no hepatosplenomegaly Musculoskeletal: Moves all extremities. Strength/ROM intact, No edema, No calf tenderness. Some swelling and tenderness noted to the right foot along the base of the great toe and at the distal aspect of the metatarsal. NEURO: Alert. Cranial nerves II through XII intact. Normal gait. Good coordination. Nonfocal examination. SKIN:: Warm, dry. Normal Color PSYCHIATRIC: Normal affect/mood, normal intera
[2021-06-29] MEDS: NAPROXEN 500 MG TABLET PO (04:37)
[2021-06-29 06:06] VITALS: BP 125/67; PULSE 75; RESP 16; O2SAT 99
== END 2021-06-29 06:07 | disposition home or self-care (01) ==
PROVIDERS: Emergency Provider Emergency Medicine; PCP Family Medicine
DX: S90.31XA Contusion of right foot, initial encounter (principal); K21.9 Gastro-esophageal reflux disease without esophagitis; Z87.01 Personal history of pneumonia (recurrent); Z96.649 Presence of unspecified artificial hip joint; F17.290 Nicotine dependence, other tobacco product, uncomplicated; W22.03XA Walked into furniture, initial encounter
CPT/HCPCS: 73620; 99283; A9270

== ENCOUNTER 2022-02-18 05:33 | Emergency (ER) | payer MEDICARE, SELFPAY ==
[2022-02-18] VITALS (15 sets, daily range): BP systolic 139–183; BP diastolic 58–86; PULSE 61–77; RESP 14–20; TEMP 37.1; O2SAT 98–100
--- NOTE | ~2022-02-18 | CT_ITS ---
EXAMINATION: CT abdomen pelvis w con DATE: 02/18/2022 06:55 INDICATION: Abdomen pain TECHNIQUE: Computed tomography (CT) of the abdomen and pelvis was performed without intravenous contr ast. The dose-length product was 686.49 mGy-cm. Automated exposure control and iterative reconstructi on technique were employed. COMPARISON: None. FINDINGS: There is left basilar atelectasis. Heart size normal. No significant pleural or pericardial effusion. No significant vascular abnormality. No lymphadenopathy. There are bilateral hip arthropla sties creating significant streak artifact which limits evaluation of the lower pelvis. Colonic diver ticulosis without evidence for diverticulitis. There is mild infiltration of the mesenteric fat, nons pecific. Small subcentimeter hypodensities of the left hepatic lobe, most likely benign. The spleen, pancreas, adrenal glands are unremarkable. There are nonobstructing left renal stones, largest measuring 5 mm. There is a 5 mm distal right ureteral stone, image 141, with moderate right hydroureteronephrosis. Gallbladder is present. Nonobstructive bowel pattern. No free air. Moderate lumbar spondylosis. IMPRESSION: 1. Distal right ureteral stone measuring 5 mm with moderate right hydroureteronephrosis. 2: Nonobstructing left nephrolithiasis. Reviewed, dictated and finalized at location A. CELL TECHNICIAN IMPRESSION: 1. Distal right ureteral stone measuring 5 mm with moderate right hydroureteron ephrosis. 2: Nonobstructing left nephrolithiasis.
[2022-02-18 05:59] LABS: Basophils Absolute Auto 0.1 K/mm3 (0.0-0.1); Basophils Percent Auto 0.4 % (0.2-1.2); Eosinophils Absolute Auto 0.1 K/mm3 (0-0.3); Eosinophils Percent Auto 0.5 % (0-4.4); Hematocrit 44.8 % (42.0-52.0); Hemoglobin 15.2 g/dL (14.0-18.0); Immature Granulocyte Absolute 0.05 K/mm3 (0.00-0.031); Immature Granulocyte Percent A 0.4 % (0-0.5); Lymphocytes Absolute Auto 1.24 K/mm3 (0.9-3.2); Lymphocytes Percent Auto 9.8 % (18.3-44.2); Mean Corpuscular HGB Conc 33.9 g/dl (32-36); Mean Corpuscular Hemoglobin 30.6 pg (26-34); Mean Corpuscular Volume 90.3 fl (80-100); Mean Platelet Volume 10.4 fl (7.4-10.4); Monocytes Absolute Auto 1.1 K/mm3 (0.1-0.6); Monocytes Percent Auto 8.9 % (2.6-8.5); Neutrophils Absolute Auto 10.1 K/mm3 (1.3-6.7); Platelet Count Result 207 k/mm3 (150-375); Red Blood Count 4.96 M/mm3 (4.6-6.20); Red Cell Distribution Width 12.6 % (11.5-14.5); White Blood Count 12.7 K/mm3 (4.5-10.0)
--- NOTE | 2022-02-18 06:04 | ED.ABDPAIN ---
HPI - Abdominal Pain General Chief Complaint: Abdominal Pain <DO Blaise Arenas Last Filed: 02/18/22 06:41> Stated Complaint: right flank pain and constipation - hx of kidney s <DO Blaise Arenas Last Filed: 02/18/22 06:41> Time Seen by Provider: 02/18/22 05:35 <Eh Mistry DO - Last Filed: 02/18/22 06:41> Source: RN notes reviewed <Eh Mistry DO - Last Filed: 02/18/22 06:41> History of Present Illness HPI narrative: Patient presents emergency department from home for right-sided back and abdominal pain. Patient states that pain began yesterday. The pain is located in the right flank and radiates around to the right side of the abdomen. Described as sharp and stabbing in nature. States is associated nausea and vomiting x1 at home. He states nothing makes the pain better or worse states the pain did briefly resolved and then returned he denies any fevers or chills chest pain shortness of breath diarrhea or any other symptoms states he did not take anything for the pain <DO Blaise Arenas Last Filed: 02/18/22 06:41> Related Data Home Medications: Home Medications Medication Instructions Recorded Confirmed omeprazole magnesium 20 mg 20 mg PO DAILY 12/17/19 06/15/21 tablet,delayed release (Prilosec OTC) <DO Blaise Arenas Last Filed: 02/18/22 06:41> Allergies/Adverse Reactions: Allergies Allergy/AdvReac Type Severity Reaction Status Date / Time No Known Allergies Allergy Verified 02/18/22 05:41 <Eh Mistry DO - Last Filed: 02/18/22 06:41> Review of Systems Review of Systems: Gen.: Denies fevers or chills ENT: Denies congestion Respiratory: Denies shortness of breath or cough CV: Denies chest pain or palpitations GI: See HPI denies burning, urgency, frequency or hematuria Musculoskeletal: Denies back pain or muscle pain Neuro: Denies numbness, tingling, weakness or focal weakness Skin: Denies rash Except as documented, all other systems reviewed and negative <Eh Mistry DO - Last Filed: 02/18/22 06:41> [facility] Past Medical History Medical History: Medical History Community acquired pneumonia Depression GERD (gastroesophageal reflux disease) Parapneumonic effusion Subcutaneous mass <Eh Mistry DO - Last Filed: 02/18/22 06:41> Surgical History Surgical History: Surgical History History of hip replacement Status post appendectomy Status post lumbar spine operation Status post rotator cuff repair <Eh Mistry DO - Last Filed: 02/18/22 06:41> Family History Family History: Family History Mother Patient's mother is , Onset Age: 67 Sibling Cerebrovascular accident Acute myocardial infarction Diverticulitis <Eh Mistry DO - Last Filed: 02/18/22 06:41> Social History Social History: Social History Social History: The patient lives in his own home in [place]. 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 He designates his sister, Natali Corado, as his surrogate decision maker and he wishes to be a full code. He drinks perhaps 6 beers a week. He denies tobacco and drug use. Smoking status: Current some day smoker (cigars ) Tobacco type: cigars Second hand tobacco smoke exposure: Yes Alcohol intake: current Drinks per week: 6 Substance use: former Substance use type: marijuana Gender identity (if verbalized by the patient): Male Spiritual care concerns: No Agree to blood products: Yes <Eh Mistry DO - Last Filed: 02/18/22 06:41> Exam Narrative: APPEARANCE: No acute distress, nontoxic, resting in bed HEENT: Normocephalic, atraumatic, OMM RESPIRATORY: No respiratory distress, clear to ausculta
[2022-02-18] MEDS: SODIUM CHLORIDE 0.9% IV 1,000 ML 999 ML IV CONT (06:11)
[2022-02-18 06:15] LABS: Alanine Aminotransferase 23 U/L (6-50); Albumin Level 4.7 g/dL (3.5-5.1); Alkaline Phosphatase 80 U/L (38-126); Anion Gap 14 mmol/L (8-16); Aspartate Amino Transferase 32 U/L (17-59); Bilirubin,Total 1.2 mg/dL (0.2-1.3); Blood Urea Nitrogen 17 mg/dL (9-20); Calcium 9.3 mg/dL (8.4-10.2); Carbon Dioxide 21 mmol/L (22-30); Chloride 106 mmol/L (98-107); Estimated CRCL calculation 58 ml/min; Estimated Glomerular Filt Rate 60; Glucose 118 mg/dL (65-110); Lipase 95 U/L (23-300); Potassium 3.7 mmol/L (3.4-5.0); Sodium 141 mmol/L (137-145)
--- NOTE | 2022-02-18 07:09 | PC.NURSE ---
Report given to ROBSON Morales.
[2022-02-18] MEDS: MORPHINE SULFATE (*CRX) 4 MG/ML INJ IV PUSH (07:21)
[2022-02-18 07:45] LABS: Appearance Urine Slightly Cloudy (Clear); Bilirubin Urine 1+ (Negative); Blood Urine 3+ (Negative); Color Urine Yellow (Yellow); Glucose Urine UA Negative (Negative); Ketones Urine 2+ mg/dL (Negative); Leukocyte Esterase Ur Negative LEU/UL (Negative); Nitrate Urine Negative (Negative); Protein Urine 1+ mg/dL (Negative); Specific Grav Ur <= 1.005 (1.001-1.035)
[2022-02-18 07:55] LABS: Mucus Urine Rare /lpf; RBC Urine >75 /hpf (0-2)
[2022-02-18 08:31] LABS: Add Urine Microscopic? YES
== END 2022-02-18 12:48 | disposition home or self-care (01) ==
PROVIDERS: Emergency Medicine; Emergency Provider Emergency Medicine; PCP Family Medicine
DX: N13.2 Hydronephrosis with renal and ureteral calculous obstruction (principal); K21.9 Gastro-esophageal reflux disease without esophagitis; Z96.649 Presence of unspecified artificial hip joint; Z87.01 Personal history of pneumonia (recurrent); F17.290 Nicotine dependence, other tobacco product, uncomplicated
CPT/HCPCS: 36415; 74177; 80053; 81001; 83690; 85025; 87086; 96365; 96375; 99284; J0131; J2270; J7030; Q9967

== ENCOUNTER 2024-01-28 10:09 | Outpatient (CLI) | payer MEDICARE, SELFPAY ==
[2024-01-28 19:12] LABS: Basophils Absolute Auto 0.1 K/mm3 (0.0-0.1); Basophils Percent Auto 0.9 % (0.2-1.2); Eosinophils Absolute Auto 0.3 K/mm3 (0-0.3); Eosinophils Percent Auto 2.9 % (0-4.4); Hematocrit 51.1 % (42.0-52.0); Immature Granulocyte Absolute 0.03 K/mm3 (0.00-0.031); Immature Granulocyte Percent A 0.3 % (0-0.5); Lymphocytes Absolute Auto 1.77 K/mm3 (0.9-3.2); Lymphocytes Percent Auto 18.5 % (18.3-44.2); Mean Corpuscular HGB Conc 31.3 g/dl (32-36); Mean Corpuscular Volume 95.9 fl (80-100); Monocytes Absolute Auto 0.9 K/mm3 (0.1-0.6); Neutrophils Absolute Auto 6.6 K/mm3 (1.3-6.7); Neutrophils Percent Auto 68.4 % (45.5-73.1); Platelet Count Result 223 k/mm3 (150-375); Red Blood Count 5.33 M/mm3 (4.6-6.20); Red Cell Distribution Width 12.6 % (11.5-14.5); White Blood Count 9.6 K/mm3 (4.5-10.0)
[2024-01-28 20:01] LABS: Alanine Aminotransferase 22 U/L (6-50); Albumin Level 4.9 g/dL (3.5-5.1); Alkaline Phosphatase 56 U/L (38-126); Anion Gap 10 mmol/L (4-12); Aspartate Amino Transferase 55 U/L (17-59); Bilirubin,Total 0.6 mg/dL (0.2-1.3); Blood Urea Nitrogen 25 mg/dL (9-20); Calcium 9.9 mg/dL (8.4-10.2); Carbon Dioxide 21 mmol/L (22-30); Chloride 110 mmol/L (98-107); Cholesterol 233 mg/dL (0-200); Estimated Glomerular Filt Rate 50; Glucose 67 mg/dL (65-110); HDL Direct 47 mg/dL; Potassium 4.7 mmol/L (3.4-5.0); Sodium 141 mmol/L (137-145); Triglycerides 97 mg/dL (<150)
[2024-01-28 20:12] LABS: LDL Cholesterol Direct 145 mg/dL
[2024-01-28 20:32] LABS: Prostate Specific Antigen 0.7 ng/mL (< OR = 4.0)
[2024-01-28 21:54] LABS: Hemoglobin A1C 5.5 % (<5.7)
== END 2024-01-28 10:10 | disposition home or self-care (01) ==
PROVIDERS: PCP Family Medicine; Visit Provider Family Medicine
DX: K21.9 Gastro-esophageal reflux disease without esophagitis (principal); Z00.00 Encounter for general adult medical examination without abnormal findings; E78.5 Hyperlipidemia, unspecified; F32.9 Major depressive disorder, single episode, unspecified; Z13.29 Encounter for screening for other suspected endocrine disorder; E53.8 Deficiency of other specified B group vitamins; E55.9 Vitamin D deficiency, unspecified; R73.9 Hyperglycemia, unspecified; Z12.5 Encounter for screening for malignant neoplasm of prostate
CPT/HCPCS: 36415; 80053; 80061; 82306; 82607; 83036; 84153; 84443; 85025; G0103

== ENCOUNTER 2024-07-03 14:35 | Outpatient (CLI) | payer MEDICARE, SELFPAY ==
--- NOTE | ~2024-07-03 | XR_ITS ---
XR abdomen/kub 1V 07/03/2024 14:54 INDICATION: Abdomen pain TECHNIQUE: KUB COMPARISON: None FINDINGS: Bowel gas pattern is normal. Moderate colonic fecal loading. There is no evidence of free a ir, mass, organomegaly, ascites or obstruction. No abnormal calculi are seen. The bones appear inta ct. There are bilateral hip arthroplasties. Mild lumbar spondylosis. IMPRESSION: 1: No acute abdominal abnormality identified. Reviewed, dictated and finalized at location B.
--- NOTE | ~2024-07-03 | XR_ITS ---
CHEST RADIOGRAPH, PA AND LATERAL CLINICAL HISTORY: R07.81 - Pleurodynia . COMPARISON: 12/17/2019 TECHNIQUE: PA and lateral views of the chest. FINDINGS The cardiomediastinal silhouette is unremarkable. Elevation of the left hemidiaphragm with adjacent compressive atelectasis. The remainder of the lungs are clear. IMPRESSION: No focal infiltrate or effusion. Reviewed, dictated and finalized at location A.
== END 2024-07-03 14:36 | disposition home or self-care (01) ==
LOC: GOSHIMG 14:36
PROVIDERS: PCP Family Medicine; Visit Provider Family Medicine
DX: R07.81 Pleurodynia (principal); R10.9 Unspecified abdominal pain
CPT/HCPCS: 71046; 74018